=== PATIENT | female | born 1995 ===

== ENCOUNTER 2017-07-20 21:55 | Emergency (ER) | payer BC ==
[2017-07-20 22:13] VITALS: BMI 34.0
[2017-07-20 22:27] VITALS: BP 125/67; RESP 17
[2017-07-20] MEDS ORDERED: Albuterol-Ipratrop 3 mg / 0.5 (3 ml) UD IH STA (23:20)
--- NOTE | 2017-07-20 23:50 | ED PDOC ---
Arrival/HPI - General Chief Complaint: Chest Pain Time Seen by Provider: 07/20/17 22:29 Historian: Patient - History of Present Illness Narrative History of Present Illness (Text): 07/20/17 23:47 21 yo F with past medical history of asthma, is complaining of gradual onset of constant tightness to the sternal area, with no radiation. Chest associated with shortness of breath and 11 AM today, associated with a dry cough which started this evening. Denies any fever, chills, recent travel, leg pain or swelling, abdominal pain, nausea, vomiting, back pain. Patient has no additional complaints. PMD [place] Past Medical History - Provider Review Nursing Documentation Reviewed: Yes - Infectious Disease Hx of Infectious Diseases: None - Tetanus Immunization Tetanus Immunization: Unknown - Past Medical History Past Medical History: No Previous - Cardiac Hx Cardiac Disorders: No - Pulmonary Hx Respiratory Disorders: Yes Hx Asthma: Yes - Neurological Hx Neurological Disorder: No Hx Migraine: Yes - HEENT Hx HEENT Disorder: No - Renal Hx Renal Disorder: No - Endocrine/Metabolic Hx Endocrine Disorders: No - Hematological/Oncological Hx Blood Disorders: No - Integumentary Hx Dermatological Disorder: No - Musculoskeletal/Rheumatological Hx Musculoskeletal Disorders: No - Gastrointestinal Hx Gastrointestinal Disorders: No - Genitourinary/Gynecological Hx Genitourinary Disorders: No - Psychiatric Hx Psychophysiologic Disorder: No Hx Substance Use: No - Surgical History Hx Appendectomy: Yes Hx Orthopedic Surgery: Yes (left wrist) - Anesthesia Hx Anesthesia: Yes Hx Anesthesia Reactions: No Hx Malignant Hyperthermia: No - Suicidal Assessment Feels Threatened In Home Enviroment: No Family/Social History - Physician Review Nursing Documentation Reviewed: Yes Family/Social History: Unknown Family HX Smoking Status: Never Smoked Hx Alcohol Use: No Hx Substance Use: No Hx Substance Use Treatment: No Allergies/Home Meds Allergies/Adverse Reactions: Allergies penicillin G Allergy (Verified 07/20/17 22:12) RASH azithromycin Adverse Reaction (Verified 07/20/17 22:12) NAUSEA Review of Systems - Review of Systems Constitutional: Normal. absent: Fatigue, Weight Change, Fevers ENT: Normal. absent: Sore Throat, Rhinorrhea, Sinus Congestion Respiratory: Normal, SOB, Cough. absent: Sputum Cardiovascular: Normal, Chest Pain. absent: Palpitations, Edema Musculoskeletal: Normal. absent: Arthralgias, Back Pain, Neck Pain Skin: Normal. absent: Rash, Pruritis, Skin Lesions Physical Exam - Physical Exam Narrative Physical Exam (Text): 07/21/17 00:52 GENERAL APPEARANCE: Patient is awake, alert, oriented x 3, in no acute distress. SKIN: Warm, dry; (-) cyanosis. EYES: (-) conjunctival pallor. ENMT: Mucous membranes moist. NECK: (-) tenderness, (-) stiffness, (-) lymphadenopathy, (-) JVD. CHEST AND RESPIRATORY: (-) rash, (-) chest wall tenderness. Lungs: (-) rales , (-) rhonchi, (+) faint expiratory wheezes with coughing only, (-) rub; breath sounds equal bilaterally. HEART AND CARDIOVASCULAR: (-) irregularity; (-) murmur, (-) gallop, (-) rub. ABDOMEN AND GI: Soft; (-) distention, (-) tenderness, (-) palpable pulsatile mass. EXTREMITIES: (-) deformity; (-) edema, (-) calf tenderness. (+) distal pulses. NEURO AND PSYCH: Mental status as above. Cranial nerves grossly intact; strength symmetric. Vital Signs Temp Pulse Resp BP Pulse Ox 07/21/17 00:36 98.5 F 87 17 99 07/20/17 22:26 98.2 F 84 17 125/67 96 Medical Decision Making ED Course and Treatment: 07/20/17 23:50 21 yo F with past medical history of asthma, is complaining of gradual onset of constant tightness to the sternal area, associated with shortness of breath and dry cough since 11 AM today. Plan : - CXR - EKG - Duoneb x1 - cg - [facility] E[facility]: NSR at 78 bpm, (-) acute ST changes, as read by TERE. CXR : NAD, as read by PA On reevaluation, patient is sitting comfortably in bed in no acute distress. Breathing is easy and unlabored, patient speaking in full sentences. Diagnostic results discussed with the patient in great detail. Instructed to follow up with primary care physician in 1-2 days without fail. Advised to take medication as prescribed. Return to the emergency room at any time for any new or worsening symptoms. Patient states she fully agrees with and understands discharge instructions. States that she agrees with the plan and disposition. Verbalized and repeated discharge instructions and plan. I have given the patient opportunity to ask any additional questions. - RAD Interpretation Radiology Orders: 07/20/17 22:30 CHEST TWO VIEWS (PA/LAT) [RAD] Stat - Medication Orders Current Medication Orders: Famotidine (Pepcid) 40 mg PO STAT STA Stop: 07/21/17 00:50 Naproxen (Anaprox Ds) 550 mg PO ONCE STA Stop: 07/21/17 00:50 Discontinued Medications Albuterol/Ipratropium (Duoneb 3 Mg/0.5 Mg (3 Ml) Ud) 3 ml IH STAT STA Stop: 07/20/17 23:21 Last Admin: 07/20/17 23:48 Dose: 3 ml - PA / SECURITY ADMINISTRATOR / Resident Statement / has reviewed & agrees with the documentation as recorded. Disposition/Present on Arrival - Present on Arrival Any Indicators Present on Arrival: No History of DVT/PE: No History of Uncontrolled Diabetes: No Urinary Catheter: No History of Decub. Ulcer: No History Surgical Site Infection Following: None - Disposition Have Diagnosis and Disposition been Completed?: Yes Diagnosis: Bronchospasm, Chest pain Disposition: HOME/ ROUTINE Disposition Time: 00:01 Patient Plan: Discharge Patient Problems: Current Active Problems Problem Status Onset Bronchospasm Acute Chest pain Acute Condition: STABLE Discharge Instructions (ExitCare): Chest Pain (ED), Bronchospasm (ED) Print Language: GRENADIAN Additional Instructions: Thank you for letting us take care of you today. You were treated for chest pain , bronchospasm. The emergency medical care you received today was directed at your acute symptoms. If you were prescribed any medication, please fill it and take as directed. It may take several days for your symptoms to resolve. Return to the Emergency Department if your symptoms worsen, do not improve, or if you have any other problems. Please contact your doctor in 2 days for re-evaluation and follow up. Bring any paperwork you were given at discharge with you along with any medications you are taking to your follow up visit. Our treatment cannot replace ongoing medical care by a primary care provider (PCP) outside of the emergency department. Thank you for allowing the [facility] team to be part of your care today. Prescriptions: Famotidine [Pepcid] 40 mg PO DAILY #20 tablet Naproxen 500 mg PO BID #30 tab Referrals: Bernard Orr MD [Primary Care Provider] - Follow up with primary Forms: [employer] (Pashto), WORK NOTE
[2017-07-21 00:37] VITALS: PULSE 87; TEMP 98.5; O2SAT 99
[2017-07-21] MEDS ORDERED: Naproxen 550 mg Tab PO STA (00:49)
[2017-07-21] MEDS ORDERED: Naproxen 550 mg Tab PO ONE (00:53)
--- NOTE | 2017-07-21 08:36 | RAD ---
HISTORY: pain COMPARISON: Chest radiographs 02/06/2016 TECHNIQUE: Chest PA and lateral FINDINGS: LUNGS: No active pulmonary disease. PLEURA: No significant pleural effusion identified. No pneumothorax apparent. CARDIOVASCULAR: Normal. OSSEOUS STRUCTURES: No significant abnormalities. VISUALIZED UPPER ABDOMEN: Normal. OTHER FINDINGS: None. IMPRESSION: No interval acute cardiopulmonary disease appreciated.
--- NOTE | 2017-07-21 10:13 | CARD ---
APPROVED REPORT EKG Measurement Heart [id number] <Conclusion> Normal sinus rhythm Normal ECG No change
== END 2017-07-21 01:04 | disposition home or self-care (01) ==
LOC: ED 21:55
DX: R07.9 Chest pain, unspecified (principal); J98.01 Acute bronchospasm

== ENCOUNTER 2017-09-06 17:57 | Emergency (ER) | payer BC ==
[2017-09-06 17:57] VITALS: BMI 34.0
--- NOTE | 2017-09-06 18:02 | ED PDOC ---
Arrival/HPI - General Time Seen by Provider: 09/06/17 18:01 Historian: Patient - History of Present Illness Narrative History of Present Illness (Text): 09/06/17 18:01 21 y/o female, pmh including penicillin and azithromycin, allergic to azithromycin and penicillin (mild itching rash with no anaphylatic, but not allergic to amoxicillin or augmentin as per patient), c/o nasal congestion/ bodyache/fatigue started yesterday. Pt. stated that she has pain everywhere in the body, associated with nasal congestion and bodyache, no throat pain, no coughing, no night sweat, no neck stiffness, no change in vision, no other medical or psychological complaints. Past Medical History - Provider Review Nursing Documentation Reviewed: Yes - Infectious Disease Hx of Infectious Diseases: None - Tetanus Immunization Tetanus Immunization: Unknown - Past Medical History Past Medical History: No Previous - Cardiac Hx Cardiac Disorders: No - Pulmonary Hx Respiratory Disorders: Yes Hx Asthma: Yes - Neurological Hx Neurological Disorder: No Hx Migraine: Yes - HEENT Hx HEENT Disorder: No - Renal Hx Renal Disorder: No - Endocrine/Metabolic Hx Endocrine Disorders: No - Hematological/Oncological Hx Blood Disorders: No - Integumentary Hx Dermatological Disorder: No - Musculoskeletal/Rheumatological Hx Musculoskeletal Disorders: No - Gastrointestinal Hx Gastrointestinal Disorders: No - Genitourinary/Gynecological Hx Genitourinary Disorders: No - Psychiatric Hx Psychophysiologic Disorder: No Hx Substance Use: No - Surgical History Hx Appendectomy: Yes Hx Orthopedic Surgery: Yes (left wrist) - Anesthesia Hx Anesthesia: Yes Hx Anesthesia Reactions: No Hx Malignant Hyperthermia: No - Suicidal Assessment Feels Threatened In Home Enviroment: No Family/Social History - Physician Review Nursing Documentation Reviewed: Yes Family/Social History: Unknown Family HX Smoking Status: Never Smoked Hx Alcohol Use: No Hx Substance Use: No Hx Substance Use Treatment: No Allergies/Home Meds Allergies/Adverse Reactions: Allergies penicillin G Allergy (Verified 09/06/17 18:06) RASH azithromycin Adverse Reaction (Verified 09/06/17 18:06) NAUSEA Review of Systems - Review of Systems Constitutional: Fatigue. absent: Fevers Eyes: absent: Vision Changes ENT: Rhinorrhea. absent: Hearing Changes Respiratory: absent: SOB, Cough, Sputum Cardiovascular: absent: Chest Pain Gastrointestinal: absent: Abdominal Pain, Diarrhea, Nausea, Vomiting Musculoskeletal: Myalgias. absent: Arthralgias, Back Pain Skin: absent: Rash, Pruritis, Skin Lesions Neurological: absent: Headache, Dizziness Psychiatric: absent: Anxiety, Depression Physical Exam Vital Signs Reviewed: Yes Vital Signs Temp Pulse Resp BP Pulse Ox 09/06/17 18:06 98.7 F 107 H 18 107/74 100 Temperature: Afebrile Blood Pressure: Normal Pulse: Tachycardic Respiratory Rate: Normal Appearance: Positive for: Well-Appearing, Non-Toxic Pain Distress: Moderate Mental Status: Positive for: Alert and Oriented X 3 - Systems Exam Head: Present: Atraumatic, Normocephalic, Other (+ttp on the maxillary sinus region) Pupils: Present: PERRL Extroacular Muscles: Present: EOMI Conjunctiva: Present: Normal Ears: Present: NORMAL TM, Normal Canal. No: Erythema Mouth: Present: Moist Mucous Membranes Neck: Present: Normal Range of Motion. No: Meningeal Signs, MIDLINE TENDERNESS Respiratory/Chest: Present: Clear to Auscultation, Good Air Exchange. No: Respiratory Distress, Accessory Muscle Use, Wheezes, Decreased Breath Sounds, Rales, Retracting, Rhonchi, Tachypneic Cardiovascular: Present: Regular Rate and Rhythm, Normal S1, S2. No: Murmurs Abdomen: Present: Normal Bowel Sounds. No: Tenderness, Distention, Peritoneal Signs Back: Present: Normal Inspection Upper Extremity: Present: Normal Inspection. No: Cyanosis, Edema Lower Extremity: Present: Normal Inspection. No: Edema Neurological: Present: GCS=15, Speech Normal, Motor Func Grossly Intact, Gait Normal, Memory Normal Skin: Present: Warm, Dry, Normal Color. No: Rashes Psychiatric: Present: Alert, Oriented x 3, Normal Insight, Normal Concentration Medical Decision Making ED Course and Treatment: 09/06/17 18:21 -Labs/rapid flu/UA -IVF/toradol/tylenol -Observe and reassess 09/06/17 19:47 -Urine hcg negative. -Labs are non-significant -Rapid flu is negative but clinical suspicious is high, will treat with tamiflu as it is within 48 hours period. -UA show +UTI, Rocephine IV ordered with the urine culture. -Pt. feels much better, vitally stable, stable for outpatient treatment. -Pt. was feeling nauseous, zofran ordered, no abdominal pain. -I discussed about the side effect of the levaquin, advised no gym and exercise as it may causes prolong QT and achilles tendon rupture. -Discharge home with levaquin, tamiflu, claritin d, flonase, stay hydrated, bed rest, follow up with your own pmd and ENT within 2 days, return to the ER for any new or worsening signs or symptoms. - Lab Interpretations Lab Results: 09/06/17 18:25 09/06/17 18:25 Lab Results 09/06/17 18:25: Sodium 140, Potassium 3.8, Chloride 105, Carbon Dioxide 24, Anion Gap 15, BUN 10, Creatinine 0.7, Est GFR ( Amer) > 60, Est GFR (Non- Af Amer) > 60, Random Glucose 114 H, Calcium 8.8, Total Bilirubin 0.6, AST 31, ALT 25, Alkaline Phosphatase 94, Total Protein 7.8, Albumin 4.1, Globulin 3.7, Albumin/Globulin Ratio 1.1 09/06/17 18:25: Influenza Typ A,B (EIA) Negative for flu a/b 09/06/17 18:25: WBC 9.6 D, RBC 4.78, Hgb 11.9 L, Hct 37.9, MCV 79.3 L, MCH 24.9 L, MCHC 31.4, RDW 15.0 H, Plt Count 295, MPV 10.3, Gran % 66.0, Lymph % ( Auto) 18.1 L, [place] % (Auto) 12.6 H, Eos % (Auto) 2.7, Baso % (Auto) 0.6, Gran # 6.30, Lymph # 1.7, [place] # 1.2 H, Eos # 0.3, Baso # 0.06 09/06/17 18:11: Urine Color Yellow, Urine Appearance Cloudy, Urine pH 6.0, Ur Specific [place] >= 1.030, Urine Protein Trace H, Urine Glucose (UA) Negative, Urine Ketones Trace H, Urine Blood Negative, Urine Nitrate Negative, Urine Bilirubin Negative, Urine Urobilinogen 1.0 H, Ur Leukocyte Esterase Moderate H, Urine RBC 0 - 2, Urine WBC 5 - 10, Ur Epithelial Cells Many, Urine Bacteria Mod I have reviewed the lab results: Yes Interpretation: Abnormal lab values (+UTI) - Medication Orders Current Medication Orders: Discontinued Medications Acetaminophen (Tylenol 325mg Tab) 650 mg PO STAT STA Stop: 09/06/17 18:09 Last Admin: 09/06/17 18:32 Dose: 650 mg MAR Pain/Vitals Document 09/06/17 18:32 HI (Rec: 09/06/17 18:32 HI [place] [id number]) Pain Reassessment Is This A Pain ReAssessment? No Sleep Is patient sleeping during reassessment? No Presence of Pain Presence of Pain No Re-Assess: MAR Pain/Vitals Document 09/06/17 19:32 HI (Rec: 09/06/17 19:43 [place] [id number]) Pain Reassessment Is This A Pain ReAssessment? Yes Sleep Is patient sleeping during reassessment? No Presence of Pain Presence of Pain No Sodium Chloride (Sodium Chloride 0.9%) 1,000 mls @ 999 mls/hr IV .Q1H1M STA Stop: 09/06/17 19:09 Last Admin: 09/06/17 18:25 Dose: 999 mls/hr eMAR Start Stop Document 09/06/17 18:25 HI (Rec: 09/06/17 18:32 [place] [id number]) Intravenous Solution Start Date 09/06/17 Start Time 18:25 Ceftriaxone Sodium (Rocephin 1 Gram Ivpb (D5w)) 1 gm in 100 mls @ 200 mls/hr IVPB STAT STA PRN Reason: Protocol Stop: 09/06/17 19:35 Last Admin: 09/06/17 19:43 Dose: 200 mls/hr eMAR Start Stop Document 09/06/17 19:43 HI (Rec: 09/06/17 19:43 [place] [id number]) Intravenous Solution Start Date 09/06/17 Start Time 19:43 Ketorolac Tromethamine (Toradol) 30 mg IVP STAT STA Stop: 09/06/17 18:09 Last Admin: 09/06/17 18:32 Dose: 30 mg MAR Pain Assessment Document 09/06/17 18:32 HI (Rec: 09/06/17 18:32 [place] [id number]) Pain Reassessment Is this a pain reassessment? No Sleep Is patient sleeping during reassessment? No Presence of Pain Presence of Pain No IVP Administration Document 09/06/17 18:32 HI (Rec: 09/06/17 18:32 HI [facility] [id number]) Charges for Administration # of IVP Administrations 1 Re-Assess: PAULO Pain Assessment Document 09/06/17 19:32 HI (Rec: 09/06/17 19:43 HI [facility] [id number]) Pain Reassessment Is this a pain reassessment? Yes Sleep Is patient sleeping during reassessment? No Presence of Pain Presence of Pain No - PA / MATH SPECIALIST / Resident Statement / has reviewed & agrees with the documentation as recorded. Disposition/Present on Arrival - Present on Arrival Any Indicators Present on Arrival: No History of DVT/PE: No History of Uncontrolled Diabetes: No Urinary Catheter: No History of Decub. Ulcer: No History Surgical Site Infection Following: None - Disposition Have Diagnosis and Disposition been Completed?: Yes Diagnosis: Sinusitis, UTI (urinary tract infection), Flu-like symptoms Disposition: HOME/ ROUTINE Disposition Time: 19:55 Patient Plan: Discharge Patient Problems: Current Active Problems Problem Status Onset Sinusitis Acute UTI (urinary tract infection) Acute Flu-like symptoms Acute Condition: IMPROVED Additional Instructions: -Discharge home with levaquin, tamiflu, claritin d, flonase, stay hydrated, bed rest, follow up with your own pmd and ENT within 2 days, return to the ER for any new or worsening signs or symptoms. Prescriptions: Fluticasone Nasal [Flonase] 2 spr NS DAILY #1 spr Levofloxacin [Levaquin] 750 mg PO DAILY #5 tablet Loratadine/Pseudoephedrine [Claritin-D 24 Hour Tablet] 1 each PO DAILY #5 tab.er.24h Oseltamivir Phosphate [Tamiflu] 75 mg PO BID #10 capsule Referrals: Bernard Orr MD [Primary Care Provider] - Follow up with primary Julian Aguilar DO [Staff Provider] - Follow up with primary Forms: WORK NOTE
[2017-09-06 18:06] VITALS: TEMP 98.7; O2SAT 100
[2017-09-06] MEDS ORDERED: Sodium Chloride 0.9% 1,000 ML IV STA (18:09)
[2017-09-06 18:22] LABS: URINE APPEARANCE CLOUDY (CLEAR); URINE BILIRUBIN NEGATIVE (NEGATIVE); URINE BLOOD NEGATIVE (NEGATIVE); URINE COLOR YELLOW (YELLOW); URINE GLUCOSE (UA) NEGATIVE (NEGATIVE); URINE KETONE TRACE mg/dL (NEGATIVE); URINE LEUKOCYTE ESTERASE MODERATE Leu/uL (NEGATIVE); URINE PROTEIN TRACE mg/dL (<30 mg/dL)
[2017-09-06 18:37] LABS: URINE BACTERIA MOD (NEG); URINE EPITHELIAL CELLS MANY /hpf (0-5); URINE RBC 0 - 2 /hpf (0-2)
[2017-09-06 18:41] LABS: BASO # 0.06 K/mm3 (0.0-2.0); BASO % 0.6 % (0.0-3.0); EOS # 0.3 (0.0-0.7); EOS % 2.7 % (1.5-5.0); GRAN # 6.3 (1.4-6.5); HEMATOCRIT 37.9 % (36.0-48.0); LYMPH # 1.7 (1.2-3.4); LYMPH % 18.1 % (22.0-35.0); MEAN CELL VOLUME 79.3 fl (80.0-105.0); MEAN CORPUSCULAR HEMOGLOBIN 24.9 pg (25.0-35.0); MEAN CORPUSCULAR HGB CONC 31.4 g/dl (31.0-37.0); MEAN PLATELET VOLUME 10.3 fl (7.0-11.0); MONO # 1.2 (0.1-0.6); MONO % 12.6 % (1.0-6.0); WHITE BLOOD COUNT 9.6 10^3/ul (4.5-11.0)
[2017-09-06 18:43] LABS: ALB/GLOB RATIO 1.1 (1.1-1.8); ALKALINE PHOSPHATASE 94 U/L (38-126); ALT/SGPT 25 U/L (7-56); AST/SGOT 31 U/L (14-36); BILIRUBIN,TOTAL 0.6 mg/dL (0.2-1.3); BLOOD UREA NITROGEN 10 mg/dL (7-21); CALCIUM 8.8 mg/dL (8.4-10.5); CARBON DIOXIDE 24 mmol/L (21-33); CHLORIDE 105 mmol/L (98-107); GFR AFRICAN-AMERICAN > 60; GLUCOSE,RANDOM 114 mg/dL (70-110); POTASSIUM 3.8 mmol/L (3.6-5.0); SODIUM 140 mmol/L (132-148); TOTAL PROTEIN 7.8 g/dL (5.8-8.3)
[2017-09-06] MEDS ORDERED: cefTRIAXone 1 gm 1 GM/100 ML BAG IVPB STA (19:06)
[2017-09-06 20:11] VITALS: BP 108/58; PULSE 85; RESP 16
== END 2017-09-06 20:12 | disposition home or self-care (01) ==
LOC: ED 17:57
DX: N39.0 Urinary tract infection, site not specified (principal); J32.9 Chronic sinusitis, unspecified; J11.1 Influenza due to unidentified influenza virus with other respiratory manifestations; Z88.0 Allergy status to penicillin
CPT/HCPCS: 80053; 81001; 85025; 87086; 87181; 87804; 96374; 96375; 99284; J0696; J1885; J2405; J7040

== ENCOUNTER 2019-01-06 19:03 | Emergency (ER) | payer SELFPAY ==
[2019-01-06 19:04] VITALS: BMI 34.0
[2019-01-06 19:31] VITALS: RESP 18
--- NOTE | 2019-01-06 19:52 | ED PDOC ---
Arrival/HPI - General Chief Complaint: Lower Extremity Problem/Injury Time Seen by Provider: 01/06/19 19:31 Historian: Patient - History of Present Illness Narrative History of Present Illness (Text): 01/06/19 19:47 23 year old female, with past medical history of anemia, presents to the ED for evaluation of dry skin to bilateral soles of her feet. Patient initially reported onset of symptoms 3 months ago but later changed to a month and a half ago. Patient states multiple visits to [facility] regarding the mentioned symptoms and was discharged home with diagnosis of dry skin. Patient notes inability to follow-up with PMD secondary to lack of insurance. She additionally reports developing dry skin to palms of her hands since past 3 days. Patient denies any other associated somatic complaints. Patient denies any fevers, chills, headache, dizziness, chest pain, shortness of breath, dyspnea on exertion, cough, abdominal pain, nausea, vomiting, diarrhea, back pain, neck pain, or any other complaints. Time/Duration: > month Symptom Onset: Gradual Symptom Course: Unchanged Activities at Onset: Light Context: Home Past Medical History - Provider Review Nursing Documentation Reviewed: Yes - Infectious Disease Hx of Infectious Diseases: None - Tetanus Immunization Tetanus Immunization: Unknown - Past Medical History Past Medical History: No Previous - Cardiac Hx Cardiac Disorders: No - Pulmonary Hx Respiratory Disorders: Yes Hx Asthma: Yes - Neurological Hx Neurological Disorder: No Hx Migraine: Yes - HEENT Hx HEENT Disorder: No - Renal Hx Renal Disorder: No - Endocrine/Metabolic Hx Endocrine Disorders: No - Hematological/Oncological Hx Blood Disorders: Yes Hx Anemia: Yes - Integumentary Hx Dermatological Disorder: No - Musculoskeletal/Rheumatological Hx Musculoskeletal Disorders: No - Gastrointestinal Hx Gastrointestinal Disorders: No - Genitourinary/Gynecological Hx Genitourinary Disorders: No - Psychiatric Hx Psychophysiologic Disorder: No Hx Substance Use: No - Surgical History Hx Appendectomy: Yes Hx Orthopedic Surgery: Yes (left wrist) - Anesthesia Hx Anesthesia: Yes Hx Anesthesia Reactions: No Hx Malignant Hyperthermia: No - Suicidal Assessment Feels Threatened In Home Enviroment: No Family/Social History - Physician Review Nursing Documentation Reviewed: Yes Family/Social History: No Known Family HX Smoking Status: Never Smoked Hx Alcohol Use: No Hx Substance Use: No Hx Substance Use Treatment: No Allergies/Home Meds Allergies/Adverse Reactions: Allergies penicillin G Allergy (Verified 09/06/17 18:06) RASH azithromycin Adverse Reaction (Verified 09/06/17 18:06) NAUSEA Review of Systems - Physician Review All systems were reviewed & negative as marked: Yes - Review of Systems Constitutional: absent: Fevers Eyes: absent: Vision Changes Respiratory: absent: SOB, Cough Cardiovascular: absent: Chest Pain Gastrointestinal: absent: Abdominal Pain, Diarrhea, Nausea, Vomiting Genitourinary Female: absent: Dysuria, Urine Output Changes Musculoskeletal: absent: Back Pain, Neck Pain Skin: Other (Dry broken skin to bilateral soles of feet). absent: Rash Neurological: absent: Headache, Dizziness Endocrine: absent: Diaphoresis Psychiatric: absent: Anxiety Physical Exam Vital Signs Reviewed: Yes Vital Signs Temp Pulse Resp BP Pulse Ox 01/06/19 19:29 98.4 F 103 H 18 117/72 100 Temperature: Afebrile Blood Pressure: Normal Pulse: Tachycardic Respiratory Rate: Normal Appearance: Positive for: Well-Appearing, Non-Toxic, Comfortable Pain Distress: None Mental Status: Positive for: Alert and Oriented X 3 Finger Stick Blood Glucose: 163 - Systems Exam Head: Present: Atraumatic, Normocephalic Pupils: Present: PERRL Extroacular Muscles: Present: EOMI Conjunctiva: Present: Normal Respiratory/Chest: Present: Clear to Auscultation, Good Air Exchange. No: Respiratory Distress, Accessory Muscle Use Cardiovascular: Present: Regular Rate and Rhythm, Normal S1, S2. No: Murmurs Abdomen: No: Tenderness, Distention, Peritoneal Signs Back: Present: Normal Inspection Upper Extremity: Present: Normal Inspection. No: Cyanosis, Edema Lower Extremity: Present: Normal Inspection, NORMAL PULSES, Neurovascularly Intact, Other (Scattered small areas of skin breakdown noted to web spaces of left toes. Calloused yellowish skin to balls of feet. Toes move freely. No drainage, vesicles or pustules noted. No erythema. .). No: Edema, Tenderness, Swelling, Temperature Abnormalties Neurological: Present: GCS=15, CN II-XII Intact, Speech Normal, Motor Func Grossly Intact, Normal Sensory Function, Gait Normal Skin: Present: Warm, Dry, Normal Color. No: Rashes Psychiatric: Present: Alert, Oriented x 3, Normal Insight, Normal Concentration Medical Decision Making ED Course and Treatment: 01/06/19 19:58 Impression: 23 year old female presents to the ED for evaluation of dry skin to bilateral feet. Plan: -- Labs -- Reassess and disposition Prior Visits: Notes and results from previous visits were reviewed. Progress Notes: 01/06/19 21:02 Discussed results and workup with patient. Patient's information was inserted into the computer automatically for [facility] due to [facility] not being her currently. [facility] will be here tomorrow and patient's contact information will be provided. Patient is in no acute distress. I recommended Lotrimin for her feet, f/u w/podiatry and [facility]. I have discussed the results and plan with the patient, who expresses understanding. Patient in agreement with plan to be discharged home. Patient is stable for discharge. Patient was instructed to follow up with physician or return if symptoms worsen or new concerning symptoms arise. - Scribe Statement The provider has reviewed the documentation as recorded by the Scribe Grey Bell. All medical record entries made by the Scribe were at my direction and personally dictated by me. I have reviewed the chart and agree that the record accurately reflects my personal performance of the history, physical exam, medical decision making, and the department course for this patient. I have also personally directed, reviewed, and agree with the discharge instructions and disposition. Disposition/Present on Arrival - Present on Arrival Any Indicators Present on Arrival: No History of DVT/PE: No History of Uncontrolled Diabetes: No Urinary Catheter: No History of Decub. Ulcer: No History Surgical Site Infection Following: None - Disposition Have Diagnosis and Disposition been Completed?: Yes Diagnosis: Lichenification, Tinea pedis of both feet Disposition: HOME/ ROUTINE Disposition Time: 20:48 Patient Plan: Discharge Condition: STABLE Discharge Instructions (ExitCare): Skin Rash, Athlete's Foot (DC) Referrals: [facility] [Outside] - Follow up with primary [facility] [place]] - Follow up with primary Podiatry Clinic [Outside] - Follow up with primary Marie Zabala MD [Medical Doctor] - Follow up with primary Forms: [employer] ([place]rian), WORK NOTE
[2019-01-06 20:06] LABS: BASO # 0.09 K/mm3 (0.0-2.0); BASO % 0.9 % (0.0-3.0); EOS # 0.4 (0.0-0.7); EOS % 3.7 % (1.5-5.0); LYMPH # 1.7 (1.2-3.4); LYMPH % 16.7 % (22.0-35.0); MEAN CELL VOLUME 78.2 fl (80.0-105.0); MEAN CORPUSCULAR HGB CONC 30.7 g/dl (31.0-37.0); MEAN PLATELET VOLUME 10.3 fl (7.0-11.0); MONO # 0.8 (0.1-0.6); MONO % 7.4 % (1.0-6.0); RED CELL DISTRIBUTION WIDTH 14.8 % (11.5-14.5); WHITE BLOOD COUNT 10.4 10^3/uL (4.5-11.0)
[2019-01-06 20:12] LABS: BLOOD UREA NITROGEN 9 mg/dL (7-21); CALCIUM 9.5 mg/dL (8.4-10.5); GFR NON-AFRICAN AMERICAN > 60
[2019-01-06 21:07] VITALS: BP 122/68; PULSE 89; TEMP 98.2; O2SAT 98
== END 2019-01-06 21:07 | disposition home or self-care (01) ==
LOC: ED 19:03
DX: B35.3 Tinea pedis (principal); L28.0 Lichen simplex chronicus